=== PATIENT | female | born 1960 | race Caucasian/White ===

== ENCOUNTER 2017-12-23 07:58 | Outpatient (CLI) | payer OTHER | END 2017-12-23 08:16 | disposition home or self-care (01) | LOC: LAB 07:58 | DX: N20.1 Calculus of ureter (principal) ==

== ENCOUNTER 2017-12-23 08:30 | Outpatient (CLI) | payer OTHER | END 2017-12-23 08:41 | disposition home or self-care (01) | LOC: RAD 08:30 | DX: N20.1 Calculus of ureter (principal) ==

== ENCOUNTER 2018-01-03 09:23 | Outpatient (CLI) | payer OTHER | END 2018-01-03 09:36 | disposition home or self-care (01) | LOC: TOM 09:23 | DX: N20.1 Calculus of ureter (principal) ==

== ENCOUNTER 2019-05-28 13:43 | Outpatient (CLI) | payer OTHER | END 2019-05-28 14:05 | disposition home or self-care (01) | LOC: LAB 13:43 | DX: R31.0 Gross hematuria (principal) ==

== ENCOUNTER 2019-05-29 06:37 | Outpatient (CLI) | payer OTHER | END 2019-05-29 06:50 | disposition home or self-care (01) | LOC: LAB 06:37 | DX: R31.0 Gross hematuria (principal) ==

== ENCOUNTER 2019-05-29 08:44 | Outpatient (CLI) | payer OTHER | END 2019-05-29 09:26 | disposition home or self-care (01) | LOC: TOM 08:44 | DX: N20.1 Calculus of ureter (principal) ==